=== PATIENT | female | born 1980 | race Caucasian/White ===

== ENCOUNTER 2017-06-16 14:13 | Emergency (ER) | payer BC ==
[~2017-06-16] VITALS: Ht 510.5 cm; Wt 93.5 kg
[2017-06-16 17:42] LABS: PLATELET COUNT 276 x10^3mcL (130-400)
[2017-06-16 17:44] LABS: RED CELL DISTRIBUTION WIDTH 16.4 % (11.5-14.5)
[2017-06-16 18:53] VITALS: BP 110/60
== END 2017-06-16 18:53 | disposition home or self-care (01) ==
LOC: ED 14:13
PROVIDERS: Emergency Medicine
DX: N94.6 Dysmenorrhea, unspecified (principal)
CPT/HCPCS: 36415; J1885; Q0092

== ENCOUNTER 2017-09-20 02:30 | Inpatient (IN) | payer BC ==
[~2017-09-20] VITALS: Ht 180.3 cm; Wt 94.3 kg
--- NOTE | 2017-09-20 02:49 | NUR ---
PT C/C BILATERAL UPPER ABD PAIN THAT BEGAN YESTERDAY. PT DENIES ANY RECENT TRAUMA TO AREA. PT REPORTS TAKING OTC MEDS BUT HAS NOT FELT ANY DEFINITE RELIEF. PT IN , ALERT AND AWAKE, WITH MILD SX OF DISTRESS, WAITING TO BE SEEN BY ER MD.
--- NOTE | 2017-09-20 03:43 | NUR ---
DR MENDEZ AT BEDSIDE FOR RECTAL EXAM. RECTAL EXAM SUPERVISED BY MYSELF.
[2017-09-20 03:45] LABS: BASOPHIL % 0.2 % (0-2); PLATELET COUNT 341 x10^3mcL (130-400); RED CELL DISTRIBUTION WIDTH 18.1 % (11.5-14.5)
[2017-09-20 03:55] LABS: CALCIUM 8.6 mg/dL (8.5-10.1); CARBON DIOXIDE 23.8 mmol/L (21-32); CHLORIDE SERUM 107 mmol/L (98-107); CREATININE SERUM 0.7 mg/dL (0.6-1.0); GFR1 > 60 mL/min; GLUCOSE SERUM 111 mg/dL (74-106); POTASSIUM SERUM 3.6 mmol/L (3.5-5.1); SODIUM SERUM 140 mmol/L (136-145)
[2017-09-20 04:00] LABS: ALBUMIN 3.9 g/dL (3.4-5.0); ALKALINE PHOSPHATASE 73 U/L (46-116); ALT/SGPT 13 U/L (14-59); AST/SGOT 9 U/L (15-37); BILIRUBIN TOTAL 0.48 mg/dL (0.20-1.00); LIPASE 139 IU/L (73-393); TOTAL PROTEIN, SERUM 7.7 g/dL (6.4-8.2)
--- NOTE | 2017-09-20 04:04 | NUR ---
PT MEDICATED PER DR MENDEZ ORDERS. PT EDUCATED ON MEDS AND DENIES ANY ALLERGIES TO MED. PT IV SITE PATENT WITH NO SX OF INFILTRATION NOTED. PT PLACED ON FULL MONITOR FOR SAFETY PRECAUTIONS. NO SX OF DISTRESS NOTED AT THIS TIME.
--- NOTE | 2017-09-20 04:46 | NUR ---
PT IN BED SUPINE POSITION, AWAKE, BREATHING EVEN AND UNLABORED. PT REPORTS DECREASE IN PAIN 2/10 SINCE PAIN MED GIVEN
--- NOTE | 2017-09-20 06:02 | NUR ---
PT MEDICATED PER DR MENDEZ ORDERS. PT EDUCATED ON MEDS AND VERBALIZED UNDERSTANDING OF TEACHING. PT IV PATENT WITH NO SX OF INFILTRATION NOTED. PT AAOX4, BREATHING EVEN AND UNLABORED. PT DENIES ANY ALLERGIES TO MED.
[2017-09-20] MEDS ORDERED: ELIQUIS5 MG PO (06:05)
--- NOTE | 2017-09-20 06:17 | NUR ---
ADMISSION REPORT GIVEN TO REJI HARTMANN EXT [phone] TO CONTINUE CARE.
[2017-09-20 06:43] VITALS: BP 119/63
--- NOTE | 2017-09-20 06:49 | NUR ---
RECEIVED PT. FROM ER VIA [facility] ACCOMPANIED BY ER NURSE AND SPOUSE.PT. IS AWAKE AND ALERT. TELE #44 PLACED ON PT., NSR. IVF NS STARTED AT K[facility]. AWAITING ORDERS.PT. PAIN LEVEL STATED AT 1-2/10 AT THIS TIME. DENIES NEED FOR PAIN MEDICATION. APPEARS COMFORTABLE. IV ZOSYN STARTED AND COMPLETED FROM ER. CALL LIGHT PLACED WITHIN REACH.
[2017-09-20 07:43] LABS: FREE T4 0.99 ng/dL (0.76-1.46); FREE THYROXINE INDEX 2.5 ug/dL (1.4-4.5); T4(THYROXINE) 7.9 ug/dL (4.7-13.3)
[2017-09-20 07:55] LABS: MAGNESIUM 2.2 mg/dL (1.8-2.4); PHOSPHOROUS 3.3 mg/dL (2.5-4.9)
--- NOTE | 2017-09-20 07:59 | NUR ---
AAO TIMES 4. TELE # 44 SR. VS'S STABLE. NO SOB. O2 SAT ON RA 100%. BS'S ACTIVE TIMES 4. [place] STRONG. PLEASANT, COOPERATIVE. NO SCD ON BLE, HAS HISTORY OF DVT AND SHE TAKES ELIQUIS PO AT HOME. IV SITE RAC PATENT, CDI.
[2017-09-20 08:03] LABS: T3 TOTAL 0.97 ng/mL
[2017-09-20 08:06] LABS: CHOLESTEROL/HDL RATIO 3.7
--- NOTE | 2017-09-20 08:53 | NUR ---
DR LEVY TALKED WITH DR SIMON ABOUT SURGERY FOR HER FOR HER CHOLECYSTITIS, IT CANT BE TODAY BECAUSE SHE TAKES ELIQUIS PO FOR HISTORY OF DVT. SHE HAS A IVC FILTER REMOVED 2 YEARS AGO.
[2017-09-20 10:33] VITALS: BP 121/71
[2017-09-20 14:47] VITALS: BP 114/63
--- NOTE | 2017-09-20 16:10 | NUR ---
CALLED TO AND HE'S AWARE OF THE RESULTS OF THE VENOUS U/S AND HE'LL UPDATE THE NURSE AFTER HE TALK TO THE SURGEON ABOUT THE PLAN.
[2017-09-20] MEDS ORDERED: FERROUS SULFAT325 M2 PO (17:39)
[2017-09-20 18:06] VITALS: BP 102/64
--- NOTE | 2017-09-20 18:36 | NUR ---
HEPARIN INFUSION STARTED ORDERED AT 1800, OLIMPIA HILTON RN CO SIGNED WITH HEPARIN PROTOCOL AND CHECKING IV SETTINGS. HEPARIN STARTED AT 1100 UNITS PER HOUR. TELE # 44 SR. NO C/O PAIN. NO SOB. COOPERATIVE. DR SIMON TALKED WITH HER THIS AM DURING MORNING ROUNDS.
[2017-09-20 19:56] VITALS: BP 105/69
--- NOTE | 2017-09-20 20:00 | NUR ---
PT A/A/O X4, FAMILT AT BEDSIDE. PT DENIES DIZZINESS AND HEADACHE. BREATH SOUNDS CLEAR. BREATHING EVEN AND UNLABORED ON ROOM AIR. DENIES CHEST PAIN AND PRESSURE. BOWEL SOUNDS ACTIVE. NO C/O N/V AND ABD PAIN THUS FAR. LEFT LOWER EXTREMITY WARMER THAN RIGHT LOWER EXTREMITY. NO C/O PAIN ON BLE THUS FAR. EQUAL FERN PEDAL PALPABLE PULSES NOTED. IV INTACT ON THE RAC INFUSING WITH NS AT 100 ML/HR AND HEPARIN DRIP AT 110 UNITS/HR. MADE PT COMFORTABLE. PLACED CALL LIGHT WITH IN REACH. WILL CONTINUE TO MONITOR.
[2017-09-20 23:36] LABS: microscopic required? YES; urine erythrocyte 2+ (NEGATIVE)
[2017-09-20 23:49] LABS: AMPHETAMINE QUAL UR NONE DETECTED (NEG <=1000)
--- NOTE | 2017-09-21 01:59 | NUR ---
PATIENTS HEPARIN DRIP INCREASED FOR 1100 UNITS/HR TO 1500 UNITS/HR. GAVE PT HEPARIN IVP BOLUS PER PROTOCOL. PT TOLERATED IT WELL. NEXT PTT ORDERED AT 0530 AM. PT WITH NO C/O PAIN THUS FAR. WILL CONTINUE TO MONITOR.
[2017-09-21 05:15] VITALS: BP 110/63
--- NOTE | 2017-09-21 05:25 | NUR ---
PT RESTING WITH EYES CLOSED. EASILY AROUSABLE WITH VERBAL STIMULI. NO C/O PAIN THUS FAR. IV INTACT AND INFUSING ORDERED. MADE PT COMFORTABLE. WILL ENDORSE TO THE AM NURSE ACCORDINGLY.
[2017-09-21 06:09] LABS: CALCIUM 8.1 mg/dL (8.5-10.1); CARBON DIOXIDE 23.9 mmol/L (21-32); CHLORIDE SERUM 108 mmol/L (98-107); CREATININE SERUM 0.7 mg/dL (0.6-1.0); GFR1 > 60 mL/min; GLUCOSE SERUM 98 mg/dL (74-106); POTASSIUM SERUM 4.1 mmol/L (3.5-5.1); SODIUM SERUM 141 mmol/L (136-145)
[2017-09-21 06:10] LABS: BASOPHIL % 0.4 % (0-2); PLATELET COUNT 283 x10^3mcL (130-400)
--- NOTE | 2017-09-21 06:30 | NUR ---
PTT RESULTS 53.7. FIRST THERAPUTIC RESULT. NO CHANGES TO BE DONE ON THE HEPARIN DRIP. NEXT PTT ORDERED FOR 1030 AM LATER. WILL ENDORSE TO THE AM NURSE ACCORDINGLY.
[2017-09-21 06:53] LABS: RED CELL DISTRIBUTION WIDTH 18.3 % (11.5-14.5)
--- NOTE | 2017-09-21 07:50 | NUR ---
PT LAYING IN BED. NO REPORT OF PAIN. NO SIGN OF ACUTE DISTRESS. HEPARIN DRIP RUNNING AT 1500 UNITS. NO SIGN OF BLEEDING. PULSES +2 BLE, BUE. IV FLUIDS FLOWING. ABDOMEN SOFT, FLAT, NON-DISTENDED. BOWEL SOUNDS ACTIVE. NO REPORT OF ABDOMINAL PAIN AT THIS TIME. BED IN LOW POSITION. CALL LIGHT WITHIN REACH. WILL CONTINUE TO MONITOR.
[2017-09-21 08:55] VITALS: BP 114/66
--- NOTE | 2017-09-21 11:24 | NUR ---
HEPARIN HELD PER DR. CANTRELL ORDER
--- NOTE | 2017-09-21 12:15 | NUR ---
PT LAYING SITTING IN CHAIR. NO REPORT OF PAIN. NO SIGN OF ACUTE DISTRESS. IV FLUIDS FLOWING. CALL LIGHT WITHIN REACH. BED IN LOW POSITION. WILL CONTINUE TO MONITOR.
[2017-09-21 12:40] VITALS: BP 105/63
--- NOTE | 2017-09-21 13:10 | NUR ---
ORDER RECEIVED FOR IVC FILTER PLACEMENT. PT SEEN IN HER ROOM. PT STATES DR. CANTRELL HAS SPOKEN WITH HER REGARDING PROCEDURE. PT ALSO STATES SHE HAS HAD THE PROCEDURE PREVIOUSLY (2 YEARS AGO). OBTAINED INFORMED CONSENT FOR PROCEDURE AND CONTRAST. PT REPORTS NO PROBLEMS WITH CONTAST PREVIOUSLY. PT PROVIDED WITH RAMÓN WIPES AND INSTRUCTED TO CLEAN BOTH GROIN SITES. WILL RETURN IN APPROXIMATELY 30 MINUTES TO TAKE PT TO COMPLETIONS MANAGER FOR PROCEDURE WITH DR. LANDAVERDE.
[2017-09-21 13:21] VITALS: Ht 180.3 cm; Wt 94.3 kg
--- NOTE | 2017-09-21 13:45 | NUR ---
PT TAKEN TO PROCEDURE. VS STABLE. NO COMPLAINT OF PAIN. NO SIGN OF ACUTE DISTRESS. A/OX4.
--- NOTE | 2017-09-21 14:53 | NUR ---
PT BACK FROM PROCEDURE. VS BP 104/59, MAP 67, HR 76, TEMP 98.4F, O2SAT 96% RR14, NO REPORT OF PAIN. NO SIGN OF ACUTE DISTRESS. SURGICAL SITE COVERED WITH TEGEDERM DRESSING. DRESSING CDI. NO SIGN OF BLEEDING AT SITE. NO HEMATOMA. NO BRUSING. NO REPORT OF PAIN AT SITE. BED IN LOW POSITION. IV FLUIDS FLOWING. CALL LIGHT WITHIN REACH. WILL CONTINUE TO MONITOR.
[2017-09-21 16:53] VITALS: BP 95/60
--- NOTE | 2017-09-21 18:42 | NUR ---
CLARIFIED ORDER, PER DR CANTRELL, RESUME HEPARIN DRIP AT MIDNIGHT. PRIMARY NURSE MADE AWARE.
--- NOTE | 2017-09-21 19:00 | NUR ---
PT LAYING IN BED. NO SIGN OF ACUTE DISTRESS. NO REPORT OF PAIN. DRESSING CDI. IV FLUIDS FLOWING. BED IN LOW POSITION. CALL LIGHT WITHIN REACH. WILL ENDORSE TO ONCOMING SHIFT.
--- NOTE | 2017-09-21 19:34 | NUR ---
RECEIEVED PT FROM PREVIOUS SHIFT NURSE. PT AOX4. TELE #44, NSR, HR91. DENIES CP/PRESSURE. PULSES PRESENT, NO EDEMA NOTED. LUNG SOUNDS CLEAR, ON RA. DENIES SOB/DIFFICULTY BREATHING. BOWEL SOUNDS ACTIVE. VOIDS FREELY. AMBULATORY. R. INGUINAL TEGADERM IN PLACE, IVC FILTER. IV IN RAC, INTACT AND PATENT. BED IN LOWEST POSITION. CALL LIGHT WITHIN REACH. WILL CONTINUE TO MONITOR.
[2017-09-21 20:46] VITALS: BP 108/54
--- NOTE | 2017-09-22 00:30 | NUR ---
HEPARIN INFUSION RESTARTED AT 1500 UNITS PER PROTOCOL. NEXT PTT TO BE DRAWN AT 0430. INFUSION VERIFIED BY REJI BRAUN.
--- NOTE | 2017-09-22 01:27 | NUR ---
PT RESTING IN BED. RR EVEN AND UNLABORED. NO ACUTE DISTRESS NOTED. CALL LIGHT WITHIN REACH. BED IN LOWEST POSITION. WILL CONTINUE TO MONITOR.
[2017-09-22 05:34] VITALS: BP 111/62
[2017-09-22 06:13] LABS: BASOPHIL % 0.5 % (0-2); PLATELET COUNT 281 x10^3mcL (130-400)
[2017-09-22 06:25] LABS: CALCIUM 8.3 mg/dL (8.5-10.1); CARBON DIOXIDE 26.2 mmol/L (21-32); CHLORIDE SERUM 107 mmol/L (98-107); CREATININE SERUM 0.7 mg/dL (0.6-1.0); GFR1 > 60 mL/min; GLUCOSE SERUM 91 mg/dL (74-106); POTASSIUM SERUM 4.3 mmol/L (3.5-5.1); SODIUM SERUM 141 mmol/L (136-145)
[2017-09-22 06:28] LABS: RED CELL DISTRIBUTION WIDTH 18.7 % (11.5-14.5)
--- NOTE | 2017-09-22 07:15 | NUR ---
PT RESTING IN BED. NO ACUTE DISTRESS. NO C/O PAIN AT THIS TIME. IVF AND HEPARIN DRIP AT 1500 UNITS/HR INFUSING. NO HEMATOMA, PURPLISH DISCOLORATION OR BLEEDING NOTED R INGUINAL SITE. BED IN LOW POSITION, CALL LIGHT WITHIN REACH. WILL CONTINUE TO MONITOR.
--- NOTE | 2017-09-22 07:48 | NUR ---
PTT 30.8. PT GIVEN 5700 UNITS HEPARIN BOLUS AND RATE INCREASED TO 1900 UNITS/HR PER HEPARIN PROTOCOL. VERIFIED WITH ROBERT MENDOZA. NEXT PTT ORDERED FOR 1200. NO ACTIVE BLEEDING NOTED. WILL CONTINUE TO MONITOR.
[2017-09-22 08:34] VITALS: BP 106/59
[2017-09-22 12:19] VITALS: BP 104/62
--- NOTE | 2017-09-22 12:37 | NUR ---
PT RESTING IN BED. NO ACUTE DISTRESS. DENIES PAIN AT THIS TIME. IVF AND HEPARIN DRIP INFUSING. FAMILY AT BEDSIDE. BED IN LOW POSITION, CALL LIGHT WITHIN REACH. WILL CONTINUE TO MONITOR.
--- NOTE | 2017-09-22 12:58 | NUR ---
PTT 48.6. NO CHANGES PER HEPARIN PROTOCOL. HEPARIN DRIP INFUSING AT 1900 UNITS/HR. VERIFIED WITH KAREL MENDOZA. NEXT PTT ORDERED FOR 1700. WILL CONTINUE TO MONITOR.
[2017-09-22 16:13] VITALS: BP 106/64
--- NOTE | 2017-09-22 18:12 | NUR ---
PTT 42.6, 3800 UNITS HEPARIN BOLUS GIVEN AND RATE INCREASED TO 2100 UNITS/HR PER HEPARIN PROTOCOL. VERIFIED WITH MANE MENDOZA. NEXT PTT ORDERED FOR 2200. NO ACTIVE BLEEDING NOTED. WILL CONTINUE TO MONITOR.
--- NOTE | 2017-09-22 18:35 | NUR ---
PT RESTING IN BED. NO ACUTE DISTRESS. VERBALIZED SOME PAIN RELIEF FROM TYLENOL. IVF AND HEPARIN DRIP INFUSING. NO ACTIVE BLEEDING NOTED. FAMILY AT BEDSIDE. BED IN LOW POSITION, CALL LIGHT WITHIN REACH. WILL ENDORSE TO INCOMING SHIFT.
--- NOTE | 2017-09-22 19:44 | NUR ---
RECEIVED PT FROM PREVIOUS SHIFT NURSE. PT AOX4. TELE #44, NSR, HR 71. DENIES CP/ PRESSURE. PULSES PRESENT, NO EDEMA NOTED. LUNG SOUNDS CLEAR, ON RA. DENIES SOB/DIFFICULTY BREATHING. BOWEL SOUNDS ACTIVE. VOIDS FREELY. AMBULATORY. R. INGUINAL AREA, TEGADERM IN PLACE, CDI. IV IN RAC, INTACT AND PATENT. BED IN LOWEST POSITION. CALL LIGHT WITHIN REACH. WILL CONTINUE TO MONITOR.
[2017-09-22 20:57] VITALS: BP 104/63
--- NOTE | 2017-09-22 23:05 | NUR ---
PT PTT 64.8, PER HEPARIN PROTOCOL NO CHANGE. HEPARIN GTT CONTINUES AT 2100 U/HOUR. NEXT PTT ORDERED FOR 09/23/17 AT 0310.
--- NOTE | 2017-09-23 01:32 | NUR ---
PT RESTING IN BED. RR EVEN AND UNLABORED. NO ACUTE DISTRESS NOTED. CALL LIGHT WITHIN REACH. BED IN LOWEST POSITION. WILL CONTINUE TO MONITOR.
--- NOTE | 2017-09-23 03:35 | NUR ---
HEPARIN BAG REPLACED, DRIP CONTINUES AT 2100 UNITS PER HOUR. VERIFIED BY REJI GARCIA.
--- NOTE | 2017-09-23 04:05 | NUR ---
PTT 67.7, PER HEPARIN PROTOCOL INFUSION DECREASED BY 200 UNITS/HR. INFUSION IS NOW AT 1900 UNITS/HOUR. VERIFIED BY REJI GARCIA. NEXT PTT ORDERED FOR 0815.
[2017-09-23 05:37] VITALS: BP 109/55
--- NOTE | 2017-09-23 07:06 | NUR ---
PT LAYING IN BED, A/OX4. NO REPORT OF PAIN. NO SIGN OF ACUTE DISTRESS. IV FLUIDS FLOWING. HEPARIN DRIP FLOWING AT 1900 UNITS/HR. CHECKED WITH REJI DISLA AND REJI GARCIA. PT MENSTRUATING, REPORTS CHANGING TAMPON Q 3-4HRS WITH MODERATE-HEAVY SATURATION. PT REPORTS STARTED DEPOPROVERA 1 MONTH AGO. PT EDUCATION PROVIDED REGARDING TAMPON USAGE. WILL CONTINUE TO MONITOR FOR SIGNS OF BLEEDING. BED IN LOW POSITION. CALL LIGHT WITHIN REACH. WILL CONTINUE TO MONITOR.
[2017-09-23 07:22] LABS: BASOPHIL % 0.5 % (0-2); PLATELET COUNT 285 x10^3mcL (130-400)
[2017-09-23 08:48] VITALS: BP 100/60
--- NOTE | 2017-09-23 09:36 | NUR ---
PTT 61.2, NO CHANGES. PER HEPARIN PROTOCOL INFUSING AT 1900 UNITS/HOUR. VERIFIED WITH REJI DISLA. NEXT PTT ORDERED FOR 1330. WILL CONTINUE TO MONITOR.
--- NOTE | 2017-09-23 13:07 | NUR ---
PT LAYING IN BED. A/OX4. FAMILY AT BEDSIDE. NO REPORT OF PAIN. TEGADERM CDI. NO SIGNS OF BLEEDING, NO HEMATOMA. NO SIGN OF ACUTE DISTRESS. IV FLUIDS FLOWING. BED IN LOW POSITION. CALL LIGHT WITHIN REACH. WILL CONTINUE TO MONITOR.
[2017-09-23 13:48] VITALS: BP 95/54
--- NOTE | 2017-09-23 14:47 | NUR ---
PTT 52.3. NO CHANGES PER HEPARIN PROTOCOL. TWO CONSECUTIVE THERAPEUTIC LEVELS. NEXT PTT ORDERED FOR 09/24/17 AT 0500. WILL CONTINUE TO MONITOR.
[2017-09-23 18:06] VITALS: BP 103/56
--- NOTE | 2017-09-23 18:14 | NUR ---
PATIENT LAYING IN BED. NO REPORT OF PAIN. NO SIGN OF ACUTE DISTRESS. IV FLUIDS FLOWING. NO SIGNS OF BLEEDING. BED IN LOW POSITION. CALL LIGHT WITHIN REACH. WILL ENDORSE TO ONCOMING SHIFT.
--- NOTE | 2017-09-23 20:50 | NUR ---
RECEIVED PT FROM PREVIOUS SHIFT NURSE. PT AOX4. TELE #44, NSR. DENIES CP/PRESSURE. PULSES PRESENT, NO EDEMA NOTED. LUNG SOUNDS CLEAR, ON RA. DENIES SOB/DIFFICULTY BREATHING. BOWEL SOUNDS ACTIVE. VOIDS FREELY. AMBULATORY. SKIN INTACT. IV IN RAC, INTACT AND PATENT. HEPARIN GTT AT 1900 UNITS/HOUR. BED IN LOWEST POSITION. CALL LIGHT WITHIN REACH. WILL CONTINUE TO MONITOR.
[2017-09-23 21:03] VITALS: BP 104/53
--- NOTE | 2017-09-24 00:02 | NUR ---
HEPARIN GTT D/C'D PER DR. SIMON ORDERS. WILL CONTINUE TO MONITOR.
--- NOTE | 2017-09-24 01:21 | NUR ---
PT C/O FEELING ANXIOUS BEFORE PROCEDURE. DR. REYNA NOTIFIED. MEDICATED PER EMAR.
[2017-09-24 05:27] VITALS: BP 95/56
--- NOTE | 2017-09-24 05:55 | NUR ---
CHG WIPES PROVIDED TO PT TO PREP FOR PROCEDURE.
[2017-09-24 06:30] LABS: BASOPHIL % 0.3 % (0-2); PLATELET COUNT 284 x10^3mcL (130-400)
[2017-09-24 06:43] LABS: RED CELL DISTRIBUTION WIDTH 17.7 % (11.5-14.5)
[2017-09-24 07:04] LABS: rbc morphology (normal/abnorm) ABNORMAL (NORMAL)
--- NOTE | 2017-09-24 07:05 | NUR ---
AAO X4.DENIES ANY PAIN/DISCOMFORT.LUNGS CLEAR.ON SR ON THE MONITOR.IVF NS GOING AT 20 ML/HR INFUSING WELL.ON NPO STATUS FOR LAP CRISPIN TODAY.CALL LIGHT WITHIN REACH.INSTRUCTED TO CALL FOR ANY PAIN/DISCOMFORT.WILL CONTINUE TO MONITOR PT.
--- NOTE | 2017-09-24 07:30 | NUR ---
OR TECH HERE TO MAP MAKER PT.IV CAPRICE.WENT DOWN VIA ENMA ACCOMPANIED BY OR TECH.
--- NOTE | 2017-09-24 11:01 | NUR ---
PT BACK FR. OR S/P LAP CRISPIN.ABD'L INCISSION X 4 WITH BAND AID SLIGHTLY STAINED.V/S=T=98.3,AJ=025/63 (93),SPO2=97% HR=72,RR=16.CALL LIGHT WITHIN REACH.INSTRUCTED TO CALL FOR ANY PAIN/DISCOMFORT.WILL CONTINUE TO MONITOR.
--- NOTE | 2017-09-24 12:00 | NUR ---
ENCOURAGE PT TO USE INCENTIVE SPIROMETER Q 1 HOUR X 10.AND TO AMBULATE TOLERATED.PT COOPERATIVE WITH THE PLAN OF CARE.
--- NOTE | 2017-09-24 13:00 | NUR ---
ASSISTED TO THE BR AND W/ STEADY GAIT AND SHOW THE STRING TO CALL FOR THE NURSE WHEN SHE'S DONE AND SHE UNDERSTANDS.
[2017-09-24 13:19] VITALS: BP 117/61
--- NOTE | 2017-09-24 15:03 | NUR ---
WENT TO RECHECK PAIN LEVEL AFTER DILAUDID 2 MG PO WAS GIVEN.CLAIMS COMFORTABLE AT THE MOMENT.PT RESTING.
[2017-09-24 17:17] VITALS: BP 103/53
--- NOTE | 2017-09-24 18:26 | NUR ---
NO SIGNIFICANT CHANGE NOTED.WILL ENDORSE TO NEXT SHIFT.
--- NOTE | 2017-09-24 19:30 | NUR ---
PT IS A/O x4. LUNG SOUNDS CLEAR BILATERALLY IN ALL [place]. PT IS USING I.S. ON TELE #44, NSR. NO COMPLAIN OF CHEST PAIN OR PRESSURE AT THIS TIME. PEDIAL PULSES PRESENT. NO EDEMA NOTED. SCD ON L LEG ONLY. BOTH LEGS EQUAL IN SIZE AND WARMTH. BS HYOPACTIVE x4. PT STATES SHE'S BEEN PASSING GAS. ABD IS TENDER AND AND ROUND. FOUR BANDAGES INTACT WITH SCANT SANGUINEOUS SPOTS. R INGUINAL SITE CLEAR AND INTACT. IV SITE ON RAC, INTACT AND PATENT WITH NS RUNNING PER MD ORDER. NO SIGNS OF INFILTRATION NOTED. FAMILY AT BEDSIDE. CALL LIGHT WITH IN REACH. BED IN LOWEST SETTING. ALL ADLS MET. WILL CONTINUE TO MONITOR PT.
[2017-09-24 20:28] VITALS: BP 100/60
--- NOTE | 2017-09-25 | NUR ---
PT IS SLEEPING IN BED. NO SIGNS OF DISTRESS NOTED. IV RUNNING PER MD ORDER. SITE IS INTACT WITH NO SIGNS OF INFILTRATION. CALL LIGHT WITHIN REACH. BED IN LOWEST SETTING. WILL CONTINUE TO MONITOR.
[2017-09-25 05:12] VITALS: BP 108/62
--- NOTE | 2017-09-25 05:30 | NUR ---
PT IS RESTING IN BED. LAB IS WITH PT. IV IS INTACT WITH NO SIGNS OF INFILTRATION. TEACHING WAS PROVIDED. IV SITE IS PATENT AND RUNNING PER MD ORDER. NO PAIN AT THIS MOMENT. ALL NEEDS MET. CALL LIGHT WITHIN REACH. WILL CONITNUE TO MONITOR PT.
[2017-09-25 06:10] LABS: BASOPHIL % 0.3 % (0-2); PLATELET COUNT 297 x10^3mcL (130-400)
[2017-09-25 06:37] LABS: CALCIUM 8.7 mg/dL (8.5-10.1); CARBON DIOXIDE 26.7 mmol/L (21-32); CHLORIDE SERUM 105 mmol/L (98-107); CREATININE SERUM 0.6 mg/dL (0.6-1.0); GFR1 > 60 mL/min; GLUCOSE SERUM 94 mg/dL (74-106); POTASSIUM SERUM 3.7 mmol/L (3.5-5.1); SODIUM SERUM 139 mmol/L (136-145)
[2017-09-25 06:48] LABS: RED CELL DISTRIBUTION WIDTH 17.9 % (11.5-14.5)
--- NOTE | 2017-09-25 07:45 | NUR ---
RECEIVED PT IN BED, A/A/O X 4, CALM, COOPERATIVE. ON TELE # 44, NSR, HR 76, DENIES CHEST PAIN OR DISCOMFORT. FERN RADIAL AND PEDAL PULSES PRESENT, NO EDEMA, CAP REFILL < 3 SECS, SCD IN PLACE FOR L LEG ONLY (R LEG HAS DVT). FERN LUNGS CLEAR, CHEST RISING EVENLY, ON R/A, SPO2 98%, I/S BY BEDSIDE, INSTRUCTED PT TO USE IT EVERY HOUR. ABD SOFT, ROUND, NON-TENDER, HYPOACTIVE BOWEL SOUNDS X 4 QUADS, LAST BM 09/23/17, HAS 4 SURGICAL WOUNDS COVERED WITH BAND-AIDS, CDI, DENIES PAIN OR DISCOMFORT AT THIS TIME.. INSTRUCTED PT TO AMBULATE OFTEN TO INCREASE MOTILITY. VOIDS FREELY, NO DYSURIA. IV SITE TO CDI, RUNNING 20 ML/HR. SIDE RAILS UP X 2, BED IN LOW POSITION, CALL LIGHT WITHIN REACH. WILL CONTINUE TO MONITOR.
--- NOTE | 2017-09-25 08:21 | NUR ---
DR SUNSHINE, RESIDENTS, CHARGE NURSE, AND ASSIGNED NURSE CAME IN TO SEE PT; DISCUSSED PLAN OF CARE FOR TODAY, INCLUDING D/C HOME. ALL QUESTIONS WERE ANSWERED, PT VERBALIZED UNDERSTANDING.
[2017-09-25 09:00] VITALS: BP 102/48
--- NOTE | 2017-09-25 10:00 | NUR ---
REPORTED TO DR CANTRELL THAT PT IS CONCERNED WITH A "PRESSURE" FEELING UNDER THE R CALCANEAL AREA WHEN SHE WALKS. PT STATES THAT PAIN GOES AWAY WHEN SHE IS AT REST. NO REDNESS OR SWELLING NOTED. DR WILL SEE PT.
[2017-09-25] MEDS ORDERED: COL100 PO (10:19)
[2017-09-25] MEDS ORDERED: NORCO1 TA2 PO (10:19)
[2017-09-25 11:12] VITALS: BP 102/48
--- NOTE | 2017-09-25 12:30 | NUR ---
PT IN BED, EATING HER LUNCH, MOTHER BY BEDSIDE. NO RESPIRATORY DISTRESS, PAIN, OR DISCOMFORT NOTED. WILL CONTINUE TO MONITOR.
[2017-09-25 12:50] VITALS: BP 105/68
--- NOTE | 2017-09-25 15:17 | NUR ---
PT GIVEN DISCHARGE PACKET, MOTHER BY BEDSIDE. DISCUSSED CURRENT STAY, MEDICATIONS, PROCEDURES DONE, LAB RESULTS, FUTURE APPOINTMENTS, AND TEACHING REGARDING CHOLECYSTITIS, CHOLECSYSTECTOMY, DIET, AND EXERCISE. ALL QUESTIONS WERE ANSWERED. PT VERBALIZED UNDERSTANDING. ALL DISCHARGE FORMS WERE SIGNED. ABD SURGICAL WOUNDS X 4 AND R INGUINAL SURGICAL WOUND TAKEN PICTURES. IV SITE L HAND REMOVED, NO S/S INFECTION OR BLEEDING. ABD SURGICAL WOUNDS X 4 AND R INGUINAL SURGICAL WOUND HAVE MELITON, NO S/S INFECTION OR BLEEDING, COVERED WITH DRY DRESSING. TELE MONITOR REMOVED AND RETURNED TO TELE STATION. ALL ID BANDS WERE REMOVED. PT WAS THEN TRANSPORTED TO DISCHARGE OFFICE VIA W/C BY [facility]ANGE TURNER. A/A/O X 4, CALM, COOPERATIVE. NO RESPIRATORY DISTRESS, PAIN, OR DISCOMFORT NOTED.
== END 2017-09-25 15:18 | disposition home or self-care (01) | DRG 253 ==
LOC: ED 02:30 → DU 05:57
PROVIDERS: Emergency Medicine; Family Medicine Sports Medicine; Radiology Diagnostic Radiology; Student in an Organized Health Care Education/Training Program; ADMIT Family Medicine
PROC: 06H03DZ Insertion of Intraluminal Device into Inferior Vena Cava, Percutaneous Approach (ICD-10-PCS; principal; 2017-09-21 14:00)
PROC: 0FT44ZZ Resection of Gallbladder, Percutaneous Endoscopic Approach (ICD-10-PCS; 2017-09-24)
DX: I82.431 Acute embolism and thrombosis of right popliteal vein (principal); K80.00 Calculus of gallbladder with acute cholecystitis without obstruction; D50.0 Iron deficiency anemia secondary to blood loss (chronic); R73.03 Prediabetes; K76.0 Fatty (change of) liver, not elsewhere classified; E83.51 Hypocalcemia; E87.8 Other disorders of electrolyte and fluid balance, not elsewhere classified; Z68.29 Body mass index [BMI] 29.0-29.9, adult; Z79.01 Long term (current) use of anticoagulants
CPT/HCPCS: CLIVC; 36005; 37191; 82962; 83880; 84439; 90658; 94150; C1880; J1170; J1644; J2001; J2175; J2250; J2405; J2543; J3010; J3490; J7030; J7050; Q0092; Q9967